=== PATIENT | female | born 2000 | race American Indian/Alaskan Native ===

== ENCOUNTER 2020-02-29 11:03 | Emergency (ER) | payer SELFPAY ==
[2020-02-29 11:15] VITALS: BP 124/55
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
== END 2020-02-29 13:33 | disposition left against medical advice (07) ==
LOC: ED 11:03
DX: S51.812A Laceration without foreign body of left forearm, initial encounter (principal); Z53.21 Procedure and treatment not carried out due to patient leaving prior to being seen by health care provider; W26.0XXA Contact with knife, initial encounter; Y93.89 Activity, other specified; Y92.89 Other specified places as the place of occurrence of the external cause; Y99.8 Other external cause status

== ENCOUNTER 2020-04-02 00:30 | Emergency (ER) | payer SELFPAY ==
[2020-04-02 00:44] VITALS: BP 111/81
[2020-04-02] MEDS ORDERED: AMOXICILLIN/K CLAV 875/125MG TAB PO ONE (00:45)
[2020-04-02] MEDS ORDERED: HYDROcodone/ACETAMINOPHEN 5-325 MG TAB PO ONE (00:45)
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
[2020-04-02] MEDS ORDERED: DIPHtheria,PERTUSSIS(ACELL),TETANUS VACCINE/PF 0.5 ML VIAL IM ONE (00:55)
[2020-04-02] MEDS ORDERED: LIDOCAINE (1%) 10 MG/1 ML VIAL 20 ML MDV INFILTRATI ONE (01:14)
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
== END 2020-04-02 03:30 | disposition home or self-care (01) ==
LOC: ED 00:30
DX: S41.011A Laceration without foreign body of right shoulder, initial encounter (principal); S31.010A Laceration without foreign body of lower back and pelvis without penetration into retroperitoneum, initial encounter; S00.83XA Contusion of other part of head, initial encounter; Z79.899 Other long term (current) drug therapy; Z98.890 Other specified postprocedural states; W50.3XXA Accidental bite by another person, initial encounter; Y93.89 Activity, other specified; Y92.89 Other specified places as the place of occurrence of the external cause; Y99.8 Other external cause status
CPT/HCPCS: 36415; 71045; 84703